=== PATIENT | male | born 1985 | race Caucasian/White ===

== ENCOUNTER 2016-07-02 08:18 | Emergency (ER) | payer SELFPAY ==
[~2016-07-02] VITALS: Ht 200.7 cm; Wt 113.6 kg
[2016-07-02 09:06] LABS: BASOPHILS % (AUTO) 0 % (0-2); EOSINOPHILS # (AUTO) 0.2 10^3uL; EOSINOPHILS % (AUTO) 2 % (0-4); MEAN CORPUSCULAR HEMOGLOBIN 30.4 PG (26.0-34.0); MEAN CORPUSCULAR VOLUME 83 FL (80-100); MEAN PLATELET VOLUME 9.4 FL (6.0-9.5); MONOCYTES # (AUTO) 0.9 X10^3; MONOCYTES % (AUTO) 10 % (3-11); NEUTROPHILS # (AUTO) 5.7 X10^3; NEUTROPHILS % (AUTO) 65 % (51-67); PLATELET COUNT 181 10^3uL (150-450); WHITE BLOOD COUNT 8.83 10^3uL (4.0-11.0)
[2016-07-02 09:08] LABS: MEAN CORPUSCULAR HGB CONC 36.8 g/dL (31.0-37.0)
[2016-07-02 09:18] LABS: ALKALINE PHOSPHATASE 111 U/L (38-126); ANION GAP 13.1 MEQ/L (3-15); BUN/CREATININE RATIO 20 (10-20); CALCULATED IONIZED CALCIUM 3.9 mg/dL (3.8-4.6); TOTAL PROTEIN 7.4 g/dL (6.4-8.5)
[2016-07-02 09:56] LABS: AMPHETAMINE SCREEN, URINE Negative (Negative); CANNABINOID SCREEN, URINE Negative (Negative); METHAMPHETAMINE SCREEN URINE S NEGATIVE (NEGATIVE); OPIATE SCREEN URINE Negative (Negative); PROPOXYPHENE STAT NEGATIVE (NEGATIVE)
--- NOTE | 2016-07-02 10:20 | NUR ---
PT LEFT WHILE TALKING TO PHYSICIAN, STATES HE DOES NOT HAVE ANY MEDICAL REASON TO KEEP HIM. HE REFUSES TO SIGN AMA PAPERS. SECURITY AND EMS NOTIFIED.
[2016-07-02 20:55] VITALS: BP 121/72
== END 2016-07-02 10:30 | disposition left against medical advice (07) ==
LOC: EDUNIT# 08:18 → ED 08:19
DX: F99 Mental disorder, not otherwise specified (principal); Z59.0 Homelessness
CPT/HCPCS: 36415; 80053; 80307; 80320; 80329; 85025; 99282; 99283